=== PATIENT | female | born 1955 | race Caucasian/White ===

== ENCOUNTER → 2019-01-16 | Day surgery (SDC) | payer OTHER ==
[~2019-01-16] MED LIST: IV RINGERS,LACTATED 1000ML 1,000 ML IV ONE; LIDOCAINE 2% PF 5 ML VIAL. ONE; MORPHINE SULFATE 4 MG/ML VIAL. ONE; MULT1TAB52 PO; PROPOFOL 40 ML IV ONE
[2019-01-16 13:33] VITALS: BP 109/77
== END ==
LOC: SURG 11:16 → EDSEX 11:16
PROVIDERS: ATTEND Internal Medicine Gastroenterology
DX: K29.50 Unspecified chronic gastritis without bleeding (principal); K64.0 First degree hemorrhoids; K63.89 Other specified diseases of intestine; E78.00 Pure hypercholesterolemia, unspecified; F15.90 Other stimulant use, unspecified, uncomplicated; Z98.890 Other specified postprocedural states
CPT/HCPCS: 43235; 45378; J2001; J2270; J2704